=== PATIENT | female | born 1940 | race Caucasian/White ===

== ENCOUNTER 2024-06-22 04:42 | Emergency (ER) | payer MEDICARE, OTHER, SELFPAY ==
[2024-06-22] VITALS (9 sets, daily range): BP systolic 131–170; BP diastolic 56–76; PULSE 67–75; BMI 30.8
[2024-06-22 05:19] LABS: % Basophils 0.7 % (0-2); % Eosinophils 2.3 % (0-6); % Immature Granulocytes 0.3 % (0-0.5); % Lymphocytes 20.1 % (20.5-51.1); % Monocytes 8.5 % (1.7-9.3); % Neutrophils 68.1 % (42.2-75.2); Absolute Basophils 0.1 10^3/uL (0-0.2); Absolute Eosinophils 0.2 10^3/uL (0-0.7); Absolute Lymphocytes 1.8 10^3/uL (1.2-3.4); Absolute Monocytes 0.7 10^3/uL (0.1-0.6); Absolute Neutrophils 5.9 10^3/uL (1.4-6.5); Hematocrit 43.9 % (37.0-47.0); Hemoglobin 15.1 g/dL (12.0-16.0); Mean Corp Hgb Conc. 34.4 g/dL (33.0-37.0); Mean Corpuscular Hgb 31.4 pg (27.0-31.0); Mean Corpuscular Volume 91.3 fL (81.0-99.0); Mean Platelet Volume 9.5 fL (7.4-10.4); Nucleated Red Blood Cells % 0 %; Platelet Count 250 10^3/uL (130-400); Red Blood Cell Count 4.81 10^6/uL (4.20-5.40); Red Cell Dist. Width 12.5 % (11.5-14.5); White Blood Cell Count 8.7 10^3/uL (4.8-10.8)
[2024-06-22 05:44] LABS: ALT (SGPT) 20 U/L (0-35); AST (SGOT) 27 U/L (14-36); Albumin 4.3 g/dl (3.5-5.0); Alkaline Phosphatase 103 U/L (38-126); Blood Urea Nitrogen 15 mg/dl (7-17); Carbon Dioxide 28 mmol/L (22-30); Chloride 96 mmol/L (98-107); Glucose 132 mg/dl (70-99); Potassium 3.7 mmol/L (3.5-5.1); Sodium 136 mmol/L (135-145); Total Bilirubin 0.9 mg/dl (0.2-1.3); Total Protein 7.3 g/dl (6.3-8.2); eGFR > 60.00
--- NOTE | 2024-06-22 08:40 | ED.GENMED ---
History of Present Illness
General
Chief Complaint: Dizziness
Source: patient
Exam Limitations: none
Time Seen by Provider: 06/22/24 07:35
Nursing documentation reviewed up to this point in time: agreed with
History of Present Illness
History of Present Illness:
83 yo female w h/o HTN, HLD, hypothyroid presents awakened 3:30 a.m for sudden onset 'banging in my ears' and dizziness, nausea and vomited multiple times, last emesis about 2 hours ago.
At this time she is asymptomatic, feels much better. Denies fever/chills, H/A, change in vision, head injury, CP, SOB, nausea, numbness, tingling weakness in extremities. Appetite has been good. No UTI symptoms.
She had episode 2 weeks ago of dizziness at night, sitting in chair, dozed off, wakened with dizziness, broke out in a sweat, vomited and it passed after about an hour. Slept through the night and next morning asymptomatic.
Denies recent illness other than 'really bad' bronchitis 2 months ago.
Past History
Past History
ED Past Medical History: HTN, Hypercholesterolemia and Hypothyroidism
ED Past Surgical History: Orthopedic
Social History
Tobacco: Former smoker
Alcohol: None
Personal: Single
Living: with family
Review of Systems
Review of Systems
Allergies reviewed?: Yes
All Other Systems: ROS reviewed and negative except as documented in HPI and ROS
Constitutional: Denies fever or fatigue
EENT: Denies sore throat
Respiratory: Denies trouble breathing
Cardiac: Reports diaphoresis; Denies chest pain, palpitations or syncope
ABD/GI: Reports nausea and vomiting; Denies abdominal pain, diarrhea or anorexia
: Denies dysuria, frequency or difficulty voiding
Musculoskeletal: Reports no symptoms
Skin: Reports no symptoms
Neurological: Denies headache, weakness or numbness
Phy Exam
Physical Exam
Physical Exam:
GENERAL: No acute distress. A&Ox3.
CONSTITUTIONAL: Afebrile.
EYES: clear, conjunctivae normal
ENMT: moist mucus membranes, Pharynx nl
RESPIRATORY: Regular respirations, nonlabored, lungs clear.
CARDIOVASCULAR: Regular rate and rhythm, no murmurs, no rubs.
GI: Soft, nontender, normal BS
MUSCULOSKELETAL: Moves with ease. Well perfused.
SKIN: Warm, dry, pink
PSYCH: Normal mood and affect. Well kept, interactive and appropriate
NEUROLOGIC: Awake, alert and oriented. CN 2-12 intact. Strength equal throughout. No focal neurological deficits.
Course
Orders/Labs/Results
Orders:
Orders
06/22/24 04:50
ECG [Electrocardiogram (*1)] Urgent
Reason for Study: Vertigo / Dizzy
EKG- Treatment ONCE
06/22/24 05:12
CMP [Comprehensive Metabolic Panel] Urgent
Complete Blood Count/With Diff Urgent
06/22/24 06:48
CT Head W/o Iv Contrast Urgent
Comment:
Reason For Exam: severe vertigo
06/22/24 09:52
Carotid US [US Cerebrovascular] Urgent
Comment:
Reason For Exam: pounding in ears, dizziness
Abnormal Lab Results
06/22/24
05:12
MCH 31.4 H pg
(27.0-31.0)
Absolute Monos (auto) 0.7 H 10^3/uL
(0.1-0.6)
Lymphocytes % 20.1 L %
(20.5-51.1)
Chloride 96 L mmol/L
(98-107)
Glucose 132 H mg/dl
(70-99)
06/22/24 05:12
06/22/24 05:12
Vital Signs
Initial and Last Documented VS:
Initial Vital Signs
Temp Pulse Resp BP Pulse Ox
97.6 F 70 26 150/74 98
06/22/24 04:50 06/22/24 04:50 06/22/24 04:50 06/22/24 04:50 06/22/24 04:50
Last Documented Vital Signs
Temp Pulse Resp BP Pulse Ox
97.8 F 75 16 131/56 91
06/22/24 07:03 06/22/24 09:45 06/22/24 09:45 06/22/24 11:05 06/22/24 11:45
MDM/Problems Addressed
Differential Diagnosis Includes:
TIA, CVA, BPPV, labyrinthitis
MDM/Problems Addressed:
83 yo female w h/o HTN, HLD, hypothyroid presents awakened 3:30 a.m for sudden onset 'banging in my ears' and dizziness, nausea and vomited multiple times, last emesis about 2 hours ago.
At this time she is asymptomatic, feels much better. Denies fever/chills, H/A, change in vision, head injury, CP, SOB, nausea, numbness, tingling weakness in extremities. Appetite has been good. No UTI symptoms.
She had episode 2 weeks ago of dizziness at night, sitting in chair, dozed off, wakened with dizziness, broke out in a sweat, vomited and it passed after about an hour. Slept through the night and next morning asymptomatic.
Denies recent illness other than 'really bad' bronchitis 2 months ago.
EKG: NSR, RBBB, Left axis deviation
8:30 a.m.
Afebrile, NAD, asymptomatic
CBC normal
CMP normal
Head CT: No abnormality
9:10 a.m.
Pt noted to drop pulse Ox occasionally to 88-90% RA for mere seconds then goes up to 97%
Pt and daughter state she does [place] bike 15 minutes every day and becomes extremely SOB, this is her baseline. After ambulating hallway, had no dizziness, no nausea, pulse ox dropped to 88% after her walk while sitting, denied feeling SOB but she
did look a little winded.
Took her morning meds, drank, no nausea or vomiting.
Asymptomatic so Simon Wilson is of no value.
12:00 PM:
Patient is requesting to go home and have carotid ultrasound reports called to her. This is reasonable as she is asymptomatic at this time.
3:15 p.m.
Carotid US result: Vascular report read: IMPRESSION:
RIGHT: Calcified plaque is identified in the proximal internal carotid artery. Carotid velocity measurements are consistent with less than 50% internal carotid artery stenosis. Vertebral artery flow is antegrade.
LEFT: No plaque is identified. Carotid velocity measurements are within normal limits and no stenosis is identified. Vertebral artery flow is antegrade.
Pt and daughter called and informed.
*EKG
EKG Intrepretation Date: 06/22/24
Interpretation: abnormal
Comparison EKG: no comparison EKG present
Rate: normal
Rhythm: sinus
[place]: left axis deviation
Interval: normal interval
QRS Pattern: right bundle branch block
Ischemia: no ischemia
*Critical Care Note
Total Time (30-74mins, 75-104mins- exclusive of procedures): Not Applicable
ED Attending Note
-
Portions of this chart may have been created with voice recognition software.� Occasional wrong word or��sound alike� substitutions may have occurred due to the inherent limitations of voice recognition software.
Discharge Plan
Departure
Patient Disposition: Home (Routine Discharge)
Date of Disposition: 06/22/24
Time of Disposition: 12:06
Patient with high blood pressure during this ER visit?: No
Condition: Good
Discharge Problem:
Benign paroxysmal positional vertigo
Instructions: Exercises (maneuvers) for benign paroxysmal positional vertigo, Dizziness
Prescriptions:
New
meclizine 25 mg tablet
25 mg PO BID PRN (Reason: dizziness) Qty: 14 0RF
No Action
atorvastatin 20 mg Tablet
20 mg PO DAILY
cetirizine [Zyrtec] 10 mg Tablet
10 mg PO DAILY
indapamide 2.5 mg Tablet
2.5 mg PO DAILY
levothyroxine 100 mcg Tablet
100 mcg PO DAILY
calcium carbonate [Calcium 600] 600 mg calcium (1,500 mg) Tablet
600 mg PO DAILY
montelukast 10 mg Tablet
10 mg PO HS
fluticasone propionate 50 mcg/actuation [place],Suspension
1 spray INTRANASAL HS
Patient Comments:
each nostril
Centrum Silver Tablet
1 tab PO DAILY
fluticasone furoate-vilanterol [Breo Ellipta] 100-25 mcg/dose Blister With Device
1 inh INHALATION R DAILY
albuterol sulfate 2.5 mg /3 mL (0.083 %) Solution For Nebulization
2.5 mg INHALATION . MID MORNING
Referrals:
Neela Braxton MD [Family Provider] - As needed
Activity Restrictions/Additional Instructions:
As we discussed, you most likely had a benign positional vertigo episode
I will contact you with the ultrasound results. If you have not heard from me by 3:00 this afternoon call [phone] and ask for Raya
Seek medical care immediately for dizziness associated with breaking out in a sweat, nausea or vomiting, feeling lightheaded, chest pain or trouble breathing
I have provided you with a pamphlet for the vestibular rehab clinic, they can help you understand the exercises and decide if there is an under lying vestibular issue. Call and make next available appointment.
Interventions
Interventions:
*Risk Screen - Suicide Last Done: 06/22/24 05:45
*General Assessment Last Done: 06/22/24 05:45
*Neglect/Abuse Screening Last Done: 06/22/24 04:50
ED- Fall Risk Assessment Last Done: 06/22/24 05:45
*ED COVID-19 Vaccine History Last Done: 06/22/24 05:45
*Nursing Disposition Last Done: 06/22/24 12:27
ED- Neurological Assessment Last Done: 06/22/24 07:03
ED- Cardiac Assessment Last Done: 06/22/24 07:03
Discharge Date and Time
Discharge Date/Time: 06/22/24 12:28
Print Language: MAURITANIAN
== END 2024-06-22 12:28 | disposition home or self-care (01) ==
LOC: EMR 04:42
PROVIDERS: Emergency Medicine; EMERGENCY PHYSICIAN Student in an Organized Health Care Education/Training Program; FAMILY PHYSICIAN Internal Medicine
DX: H81.10 Benign paroxysmal vertigo, unspecified ear (principal); R11.2 Nausea with vomiting, unspecified; R61 Generalized hyperhidrosis; I45.10 Unspecified right bundle-branch block; I65.21 Occlusion and stenosis of right carotid artery; E03.9 Hypothyroidism, unspecified; I10 Essential (primary) hypertension; E78.00 Pure hypercholesterolemia, unspecified; J45.909 Unspecified asthma, uncomplicated; Z86.16 Personal history of COVID-19; Z87.891 Personal history of nicotine dependence; Z88.6 Allergy status to analgesic agent
CPT/HCPCS: 99285; 70450; 80053; 85025; 93005; 93880